=== PATIENT | male | born 1965 | race Caucasian/White ===

== ENCOUNTER 2021-01-24 02:43 | Emergency (ER) | payer MEDICAID, SELFPAY ==
--- NOTE | 2021-01-24 02:44 | PC.NURSE ---
patient was fully undressed and taken to decon
[2021-01-24 03:00] VITALS: BP 147/90; PULSE 75; RESP 14; TEMP 36.6; O2SAT 95; BMI 30.7
[2021-01-24 03:14] VITALS: BP 161/74; PULSE 86; O2SAT 95
--- NOTE | 2021-01-24 03:18 | ED.OVERDOSE ---
HPI - Overdose General Chief Complaint: Overdose Stated Complaint: Overdose Time Seen by Provider: 01/24/21 02:52 Source: patient Mode of arrival: EMS History of Present Illness HPI Narrative: 55-year-old male prior heroin user who recently relapsed and began using heroin approximately 1 week ago. He states that he used a bundle last night and arise via EMS from home where his brother found him on the ground not breathing. Please department administered 4 mg nasal Narcan, EMS arrived and started to bag the patient and administered another 2 mg of Narcan nasally. After the latter Narcan patient immediately awoke and was found to be fully alert and oriented x4. Patient states that this was not an attempt to take his life and denies any suicidal ideation. Related Data Allergies Allergy/AdvReac Type Severity Reaction Status Date / Time No Known Allergies Allergy Unverified 06/03/20 15:43 [No Known Allergies*] Review of Systems Review of Systems: Pertinent positives and negatives as stated in HPI 10 point review systems is otherwise negative. [facility] Past Medical History Source: nursing notes reviewed Medical History No known health problems Social History Social History Alcohol intake: never Smoking Status: Never smoker Use of substances other than those prescribed or required for medical reasons: Yes Substance Use Frequency: Daily Last Used Substance: Hours (ago) Advance Directives: No Advance Directives Information Provided: No Physical Exam Vital Signs: Vital Signs: Last Vital Signs Temp 97.8 F 01/24/21 03:00 Pulse 79 01/24/21 04:25 Resp 15 01/24/21 04:25 BP 125/85 01/24/21 04:25 Pulse Ox 97 01/24/21 04:25 Body Mass Index 30.7 VITAL SIGNS: Reviewed. GENERAL: Well developed, well nourished, in no acute distress. HEAD: Normocephalic/atraumatic EYES: PERRLA, EOMI OROPHARYNX: no oral lesions noted, posterior pharynx clear NECK: Supple, no adenopathy LUNGS: Normal breath sounds. No adventitious sounds or accessory muscle use. SpO2<93> CARDIOVASCULAR: Regular rate and rhythm without noted murmurs ABDOMEN: Soft, non-tender, non-distended with bowel sounds. NEUROLOGIC: Drowsy and oriented x 4. Strength and sensation to light touch were grossly intact x 4. Course Course Course Narrative: 55-year-old male with history and clinical presentation consistent with relapse to heroin and overdosed this evening. No evidence to suggest suicide attempt and patient will be observed and discharged when more awake. On re-evaluation patient has a steady gait, he is able to tolerate p.o. and stable for discharge to home. Reevaluation(s) Reevaluation #1: Patient placed in physician observation because the patient needed more time sober. At the time observation was started the patient's vital signs were stable, patient is drowsy and oriented but slightly agitated, neuro: Nonfocal, CV RRR, lungs clear Time: 03:45 Reevaluation #2: Patient remove from physician observation because the patient is clinically sober. On re-evaluation vital signs are stable, patient is alert and tolerating p.o., CV RRR, lungs clear, abdomen nontender, neuro: Nonfocal. Time: 06:50 Discharge Plan Discharge Clinical Impression: Drug overdose Patient Disposition: Home, Self-Care Instructions: Adult Overdose (ED) Additional Instructions: Return to the emergency department should you develop acute worsening of symptoms. Referrals: Physician,Unknown [Primary Care Provider] - 2 days Print Language: Korean
[2021-01-24 03:21] VITALS: BP 136/88; PULSE 77; RESP 14; O2SAT 93
[2021-01-24 04:25] VITALS: BP 125/85; PULSE 79; RESP 15; O2SAT 97
== END 2021-01-24 06:54 | disposition home or self-care (01) ==
LOC: HO.ED 04:07
PROVIDERS: Emergency Provider Student in an Organized Health Care Education/Training Program
DX: T40.1X1A Poisoning by heroin, accidental (unintentional), initial encounter (principal); R06.81 Apnea, not elsewhere classified; Y92.039 Unspecified place in apartment as the place of occurrence of the external cause
CPT/HCPCS: 99284

== ENCOUNTER 2021-01-26 23:15 | Emergency (ER) | payer MEDICAID, SELFPAY ==
--- NOTE | ~2021-01-26 | CT_ITS ---
EXAMINATION: CT HEAD WITHOUT CONTRAST CLINICAL INFORMATION: Found down COMPARISON: None. TECHNIQUE: Contiguous axial imaging was performed from the skull base to vertex without intravenous contrast. This CT examination was performed using dose optimization techniques as appropriate, variously including the following: * Automated exposure control * Adjustment of mA and/or kV according to patient size (this includes techniques or standardized protocols for targeted exams where dose is matched to indication/reason for exam; i.e. extremities or head) Use of iterative reconstruction technique DLP: 723 mGy-cm. FINDINGS: There is no evidence of acute intracranial hemorrhage or territorial infarction. No abnormal mass effect or midline shift is seen. Lopez to white matter differentiation is well preserved. No extra-axial fluid collections are identified. No hydrocephalus. No significant volume loss. There is no abnormal attenuation within the brain parenchyma. The osseous structures and soft tissues are normal. Moderate opacification of the ethmoid air cells. The mastoid air cells and visualized portions of the paranasal sinuses are otherwise well aerated. CT/CT head/brain wo con IMPRESSION: No acute intracranial pathology.
[2021-01-26 23:21] VITALS: BP 152/100; PULSE 82; RESP 16; TEMP 36.6; O2SAT 96; BMI 30.7
[2021-01-26 23:32] VITALS: BP 152/106; PULSE 86; RESP 18; TEMP 36.6; O2SAT 96
--- NOTE | 2021-01-26 23:37 | ED_ITS ---
HPI - Overdose General Chief Complaint: Overdose <MONET Aguilar Last Filed: 01/27/21 01:49> Stated Complaint: ? <MONET Aguilar Last Filed: 01/27/21 01:49> Time Seen by Provider: 01/26/21 23:37 <MONET Aguilar Last Filed: 01/27/21 01:49> Source: patient and EMS <MONET Aguilar Last Filed: 01/27/21 01:49> Mode of arrival: EMS <MONET Aguilar Last Filed: 01/27/21 01:49> Limitations: no limitations <MONET Aguilar Last Filed: 01/27/21 01:49> History of Present Illness HPI Narrative: 55 y/o male presenting to the ER via EMS after he was found unconscious in the hallway of an apartment building. He was given 12 mg IN narcan by bystanders and regained consciousness. He admits to injecting 1 bag of heroin today. He arrives AAO x3 and denies complaints. He does not know how he got into the apartment building or if he fell down or what happened. He states he lives near there. He has overdosed in the past. He denies trying to injure himself. He denies injuries. No headache, vomiting, aches or pains. He was seen here 2 days ago for similar event. Note states he just relapsed 1 week ago and started using again. <MONET Aguilar Last Filed: 01/27/21 01:49> MD complaint: accidental overdose <MONET Aguilar Last Filed: 01/27/21 01:49> Onset (ago): unknown <MONET Aguilar Last Filed: 01/27/21 01:49> Intent: unwilling to say <MONET Aguilar Last Filed: 01/27/21 01:49> Context: Accidental Overdose: wanted to get high and uncertain what happened <MONET Aguilar Last Filed: 01/27/21 01:49> Treatments Prior to Arrival: narcan <MONET Aguilar Last Filed: 01/27/21 01:49> Related Data Allergies/Adverse Reactions: Allergies Allergy/AdvReac Type Severity Reaction Status Date / Time No Known Allergies Allergy Unverified 06/03/20 15:43 [No Known Allergies*] <MONET Aguilar - Last Filed: 01/27/21 01:49> Review of Systems Review of Systems: Constitutional: No Fever, No Chills Cardiovascular: No Chest Pain, No SOB, No Orthopnea, No Edema Respiratory: No Cough, No Sputum, No Wheezing, No dyspnea Gastrointestinal: No Nausea, No Vomiting, No Diarrhea, No abdominal Pain Musculoskeletal: No joint pain, No Myalgias Skin: + Skin Lesions, No rash Neuro: No Weakness, No Numbness, No Dizziness, No Headache Psych: No Anxiety/Panic, + Depression, No SI Heme/Lymph: + Bruising, No Lymphadenopathy <MONET Aguilar Last Filed: 01/27/21 01:49> PENDING SALE TO [facility] Past Medical History Attestation statement: The following information was validated with the patient. <MONET Aguilar Last Filed: 01/27/21 01:49> Medical History: Medical History No known health problems <MONET Aguilar Last Filed: 01/27/21 01:49> Social History Social History: Social History Alcohol intake: never Smoking Status: Current every day smoker Use of substances other than those prescribed or required for medical reasons: Yes Substance Use Type: Heroin Advance Directives: No Advance Directives Information Provided: No <MONET Aguilar Last Filed: 01/27/21 01:49> Physical Exam Vital Signs: Vital Signs: Last Vital Signs Temp 97.9 F 01/26/21 23:32 Pulse 66 01/27/21 06:16 Resp 16 01/27/21 06:16 BP 146/97 H 01/27/21 06:16 Pulse Ox 94 01/27/21 06:16 Body Mass Index 30.7 Appearance: Lethargic but arouses to voice. Oriented X3. No acute distress. Eyes: Pupils equal, round and reactive to light. ENT: Pharynx normal. Neck: Normal inspection. Neck supple. CVS: Normal heart rate and rhythm. Pulses normal. Respiratory: No respiratory distress. Breath sounds normal. Abdomen: Soft and nontender. +BS x4 Skin: Skin warm and dry. Normal skin color. Normal skin turgor. No rashes. Extremities: No lower extremity edema. Left upper extremity with track landrum on medial portion of upper arm, no cellultiis or abscess Neuro: Oriented X 3. No motor deficit. No sensory deficit. Answers questions appropriately. <MONET Aguilar - Last Filed: 01/27/21 01:49> Vital Signs: Last Vital Signs Temp 97.9 F 01/26/21 23:32 Pulse 66 01/27/21 06:16 Resp 16 01/27/21 06:16 BP 146/97 H 01/27/21 06:16 Pulse Ox 94 01/27/21 06:16 Body Mass Index 30.7 <Halima Castañeda DO - Last Filed: 01/27/21 06:56> Course Course Course Narrative: 55 y/o male presenting with unintentional heroin overdose. Found down, unknown down time. No signs of trauma. He is awake and appropriate on arrival after 12 mg IN Narcan. Will get basic labs and CT head given downtime and mechanism is unknown. <MONET Aguilar - Last Filed: 01/27/21 01:49> Reevaluation(s) Reevaluation #1: Labs show potassium 3.0. CPK mildly elevated 240. Normal renal function. CT head is negative. Would benefit from d/w Curriculum And Instruction Director given this is his 2nd significant overdose in the last 3 days. He needs detox. He states he is on Vivitrol, last got his shot 1 month ago. Does not know the day he is due. He is agreeable to stay and speak with monomer recovery operator in the morning about other options. Physician observation started at 1:45am. Patient placed in physician observation because patient is awaiting discussion with Curriculum And Instruction Director for additional opiate addiction treatment options.. At the time observation was started patient's vital signs were stable. Patient is alert and oriented. Neuro exam is non-focal. Steady on his feet. CV: RRR and lungs are clear. Will continue to monitor. <MONET Aguilar - Last Filed: 01/27/21 01:49> MDM - Overdose Lab Data Result diagrams: : 01/27/21 00:16 01/27/21 00:16 <MONET Aguilar - Last Filed: 01/27/21 01:49> Labs: Lab Results 01/27/21 01/27/21 01/27/21 Range/Units 00:16 00:16 00:16 WBC 7.9 (4.8-10.8) X10*3/uL RBC 3.79 L (4.60-5.80) X10*6/uL Hgb 12.3 L (14.0-18.0) g/dl Hct 35.4 L (42-52) % MCV 93.4 (80-98) fL MCH 32.5 (27.0-33.0) pg MCHC 34.7 (31.0-36.0) g/dl RDW 11.9 (11.0-16.0) % Plt Count 190 (160-400) X10*3/uL MPV 9.9 (9.4-12.4) fL Immature Gran % (Auto) 0.3 (0.0-0.4) % Neut % (Auto) 73.2 H (45-73) % Lymph % (Auto) 13.5 L (20-40) % [place] % (Auto) 9.1 (2-11) % Eos % (Auto) 3.4 (0-4) % Baso % (Auto) 0.5 (0-2) % Lymph # (Auto) 1.1 L (1.2-4.9) X10*3/uL [place] # (Auto) 0.7 (0.1-1.2) X10*3/uL Eos # (Auto) 0.3 (0.0-0.4) X10*3/uL Baso # (Auto) 0.0 (0.0-0.2) X10*3/uL Abs Immat Gran (auto) 0.02 (0.00-0.03) X10*3/uL Absolute Neuts (auto) 5.8 (2.0-8.3) X10*3/uL Absolute Nucleated RBC 0.000 (0.0-0.012) X10*3/uL Nucleated RBC % (auto) 0.0 (0.0-0.2) /100WBC Sodium 141 (135-145) mmol/L Potassium 3.0 L (3.3-5.1) mmol/L Chloride 104 (96-108) mmol/L Carbon Dioxide 29 (22-29) mmol/L Anion Gap 11 L (12-20) BUN 15 (9-16) mg/dL Creatinine 1.04 (0.5-1.4) mg/dL Estim Creat Clear Calc 97.8 Estimated GFR > 60 Random Glucose 138 H (60-115) mg/dL Calcium 8.8 (8.4-10.2) mg/dL Magnesium 2.3 (1.6-2.6) mg/dL Total Bilirubin 0.5 (0.0-1.0) mg/dL Direct Bilirubin 0.3 (0.0-0.5) mg/dL AST 25 (5-37) U/L ALT 25 (0-40) U/L Alkaline Phosphatase 53 (39-117) U/L Total Creatine Kinase 245 H (38-174) U/L Total Protein 6.7 (6.5-8.0) g/dL Albumin 3.9 (3.5-5.0) g/dL Ethyl Alcohol < 10 mg/dL <MONET Aguilar - Last Filed: 01/27/21 01:49> Lab Results 01/27/21 01/27/21 01/27/21 Range/Units 00:16 00:16 00:16 WBC 7.9 (4.8-10.8) X10*3/uL RBC 3.79 L (4.60-5.80) X10*6/uL Hgb 12.3 L (14.0-18.0) g/dl Hct 35.4 L (42-52) % MCV 93.4 (80-98) fL MCH 32.5 (27.0-33.0) pg MCHC 34.7 (31.0-36.0) g/dl RDW 11.9 (11.0-16.0) % Plt Count 190 (160-400) X10*3/uL MPV 9.9 (9.4-12.4) fL Immature Gran % (Auto) 0.3 (0.0-0.4) % Neut % (Auto) 73.2 H (45-73) % Lymph % (Auto) 13.5 L (20-40) % [place] % (Auto) 9.1 (2-11) % Eos % (Auto) 3.4 (0-4) % Baso % (Auto) 0.5 (0-2) % Lymph # (Auto) 1.1 L (1.2-4.9) X10*3/uL [place] # (Auto) 0.7 (0.1-1.2) X10*3/uL Eos # (Auto) 0.3 (0.0-0.4) X10*3/uL Baso # (Auto) 0.0 (0.0-0.2) X10*3/uL Abs Immat Gran (auto) 0.02 (0.00-0.03) X10*3/uL Absolute Neuts (auto) 5.8 (2.0-8.3) X10*3/uL Absolute Nucleated RBC 0.000 (0.0-0.012) X10*3/uL Nucleated RBC % (auto) 0.0 (0.0-0.2) /100WBC Sodium 141 (135-145) mmol/L Potassium 3.0 L (3.3-5.1) mmol/L Chloride 104 (96-108) mmol/L Carbon Dioxide 29 (22-29) mmol/L Anion Gap 11 L (12-20) BUN 15 (9-16) mg/dL Creatinine 1.04 (0.5-1.4) mg/dL Estim Creat Clear Calc 97.8 Estimated GFR > 60 Random Glucose 138 H (60-115) mg/dL Calcium 8.8 (8.4-10.2) mg/dL Magnesium 2.3 (1.6-2.6) mg/dL Total Bilirubin 0.5 (0.0-1.0) mg/dL Direct Bilirubin 0.3 (0.0-0.5) mg/dL AST 25 (5-37) U/L ALT 25 (0-40) U/L Alkaline Phosphatase 53 (39-117) U/L Total Creatine Kinase 245 H (38-174) U/L Total Protein 6.7 (6.5-8.0) g/dL Albumin 3.9 (3.5-5.0) g/dL Ethyl Alcohol < 10 mg/dL <Halima Castañeda DO - Last Filed: 01/27/21 06:56> Discharge Plan Discharge Clinical Impression: Hypokalemia Drug overdose Qualifiers: Encounter type: initial encounter Injury intent: accidental or unintentional Qualified Code(s): T50.901A - Poisoning by unspecified drugs, medicaments and biological substances, accidental (unintentional), initial encounter <MONET Aguilar - Last Filed: 01/27/21 01:49> Instructions: Opioid Use Disorder (ED) <MONET Aguilar - Last Filed: 01/27/21 01:49> Additional Instructions: DO NOT USE HEROIN - YOU ALMOST TODAY THIS IS YOUR 2ND OVERDOSE IN 3 DAYS Recommend detox. <MONET Aguilar - Last Filed: 01/27/21 01:49>
[2021-01-27 00:21] LABS: MANUAL DIFF FLAG NO
[2021-01-27 00:22] LABS: Basophils Percent Auto 0.5 % (0-2); Eosinophils Absolute Auto 0.3 X10*3/uL (0.0-0.4); Eosinophils Percent Auto 3.4 % (0-4); Hematocrit 35.4 % (42-52); Hemoglobin 12.3 g/dl (14.0-18.0); Imm Gran Abs Auto 0.02 X10*3/uL (0.00-0.03); Imm Gran Pct Auto 0.3 % (0.0-0.4); Lymphocytes Absolute Auto 1.1 X10*3/uL (1.2-4.9); Lymphocytes Percent Auto 13.5 % (20-40); Mean Corpuscular HGB Conc 34.7 g/dl (31.0-36.0); Mean Corpuscular Hemoglobin 32.5 pg (27.0-33.0); Mean Corpuscular Volume 93.4 fL (80-98); Mean Platelet Volume 9.9 fL (9.4-12.4); Monocytes Absolute Auto 0.7 X10*3/uL (0.1-1.2); Monocytes Percent Auto 9.1 % (2-11); Neutrophils Absolute Auto 5.8 X10*3/uL (2.0-8.3); Neutrophils Percent Auto 73.2 % (45-73); Platelet Count 190 X10*3/uL (160-400); Red Blood Count 3.79 X10*6/uL (4.60-5.80); Red Cell Distribution Width 11.9 % (11.0-16.0); White Blood Count 7.9 X10*3/uL (4.8-10.8)
[2021-01-27 00:51] LABS: Ethanol < 10 mg/dL
[2021-01-27 00:55] LABS: Alanine Aminotransferase 25 U/L (0-40); Albumin Level 3.9 g/dL (3.5-5.0); Alkaline Phosphatase 53 U/L (39-117); Anion Gap 11 (12-20); Aspartate Amino Transferase 25 U/L (5-37); Bilirubin Direct 0.3 mg/dL (0.0-0.5); Bilirubin Total 0.5 mg/dL (0.0-1.0); Blood Urea Nitrogen 15 mg/dL (9-16); Calcium 8.8 mg/dL (8.4-10.2); Carbon Dioxide 29 mmol/L (22-29); Chloride 104 mmol/L (96-108); Creatinine Clr Calc Pharmacy 97.8; Estimated Glomerular Filt Rate > 60; Glucose Random 138 mg/dL (60-115); Magnesium 2.3 mg/dL (1.6-2.6); Sodium 141 mmol/L (135-145); Total Protein 6.7 g/dL (6.5-8.0)
[2021-01-27] MEDS: Potassium Chloride ER 20 MEQ TAB.ER.PRT 40 MEQ PO (01:24)
[2021-01-27 01:26] VITALS: PULSE 68; RESP 14; O2SAT 97
--- NOTE | 2021-01-27 02:01 | PC.NURSE ---
plan is to let patient sleep until the morning, he is requesting to speak to a aircraft launch and recovery technician. pt offered food and beverage, he declined. pt did drink 8oz of water with tablets.
[2021-01-27 04:19] VITALS: PULSE 68; RESP 16; O2SAT 95
[2021-01-27 06:16] VITALS: BP 146/97; PULSE 66; RESP 16; O2SAT 94
[2021-01-27 08:45] VITALS: BP 131/95; PULSE 64; RESP 20; O2SAT 96
--- NOTE | 2021-01-27 08:53 | PC.NURSE ---
Pt alert, oriented, denies SI, requested to speak with [facility], awaiting consult.
--- NOTE | 2021-01-27 10:09 | MHC.RECOVSUP ---
? Reason for consult:Continuity of care o Current location: Bed 21 o Identified substance use concern: Heroin - Overdose - Withdrawal - Support ? Intervention: o MAT started or to be started o Community resources provided o ? Plan: o Patient to follow up with [facility] after discharge ? Additional information: Patient refuses treatment. States I'm on Vivitrol and asked to be discharged. Patient given community resources.
== END 2021-01-27 10:31 | disposition home or self-care (01) ==
PROVIDERS: Physician Assistant; Emergency Provider Emergency Medicine
DX: T40.1X1A Poisoning by heroin, accidental (unintentional), initial encounter (principal); R40.20 Unspecified coma; Y92.038 Other place in apartment as the place of occurrence of the external cause; F17.200 Nicotine dependence, unspecified, uncomplicated; E87.6 Hypokalemia
CPT/HCPCS: 36415; 70450; 80048; 80076; 80320; 82550; 83735; 85025; 99285

== ENCOUNTER 2025-03-12 11:06 | Emergency (ER) | payer MEDICAID, SELFPAY ==
--- NOTE | ~2025-03-12 | XR_ITS ---
EXAMINATION: XR CHEST CLINICAL INFORMATION: left sided chest pain. recent incarceration COMPARISON: None available. TECHNIQUE: 2 views of the chest were obtained. FINDINGS: The cardiac, hilar, and mediastinal contours are normal. The lungs are clear bilaterally. There is no pneumothorax or pleural effusion. There is no focal osseous or soft tissue abnormality. XR/XR chest 2V IMPRESSION: No active pulmonary disease. Electronically signed by: Thomas Nguyen MD 03/12/2025 12:49 PM EDT
--- NOTE | 2025-03-12 11:12 | ECG_ITS ---
Test Reason : cp Blood Pressure : */* mmHG Vent. Rate : 82 BPM Atrial Rate : 82 BPM P-R Int : 146 ms QRS Dur : 88 ms QT Int : 388 ms P-R-T Axes : 32 25 18 degrees QTcB Int : 453 ms Normal sinus rhythm Nonspecific ST abnormality Abnormal ECG No previous ECGs available Referred By: Generic ED Physician Electronically Signed By: DAWSON LAWRENCE
[2025-03-12 11:16] VITALS: BP 134/92; BP 162/110; PULSE 75; PULSE 83; RESP 16; O2SAT 93; O2SAT 95; BMI 36.3
[2025-03-12 11:26] VITALS: PULSE 77
[2025-03-12 11:47] VITALS: BP 136/89; PULSE 68
[2025-03-12] MEDS: Nitroglycerin 2 % Oint 1 GM Packet 1 INCH TRANSDERMA (11:47)
--- NOTE | 2025-03-12 12:05 | ED.CHESTPAIN ---
HPI - Chest Pain General Chief Complaint: Chest Pain Stated Complaint: CP, HTN, MADDEN Time Seen by Provider: 03/12/25 11:33 Source: patient, RN notes reviewed and old records reviewed Mode of arrival: EMS Limitations: no limitations History of Present Illness ED Provider: Shawn CAMPBELL narrative: 60-year-old male with past medical history significant for hypertension presents for evaluation of left-sided chest pain. His pain started about 30 minutes prior to arrival to the ED. His pain is in the left chest, does not radiate His pain is worse with inspiration. He denies any personal history of previous MIs He reports that he was incarcerated for several years and was released 2 weeks ago He reports some mild shortness of breath, denies any cough, fevers, chills. Denies any abdominal pain mckenzie IV, verbally The patient is a current tobacco smoker Related Data Home Medications ?Medication ?Instructions ?Recorded ?Confirmed aspirin 81 mg tablet,delayed 81 mg PO DAILY 03/12/25 03/12/25 release buprenorphine 8 mg-naloxone 2 mg 1 film buccal DAILY 03/12/25 03/12/25 sublingual film (Suboxone) diclofenac sodium 1 % topical gel 2 g topical TID 03/12/25 03/12/25 ergocalciferol (vitamin D2) 1,250 1,250 mcg PO QWEEK 03/12/25 03/12/25 mcg (50,000 unit) capsule (Vitamin D2) hydrocortisone 1 % topical cream 1 appl topical BID 03/12/25 03/12/25 ibuprofen 800 mg tablet 800 mg PO TIDWM 03/12/25 03/12/25 ketoconazole 2 % topical cream 1 appl topical BID 03/12/25 03/12/25 lidocaine 5 % topical patch 1 patch topical DAILY 03/12/25 03/12/25 lisinopril 20 1 tab PO DAILY 03/12/25 03/12/25 mg-hydrochlorothiazide 25 mg tablet naloxone 4 mg/actuation nasal 1 spray intranasal Q2M PRN OVERDOSE 03/12/25 03/12/25 spray (Narcan) nicotine (polacrilex) 4 mg gum 4 mg buccal Q2H PRN CRAVINGS 03/12/25 03/12/25 (Nicorette) prazosin 2 mg capsule 4 mg PO BEDTIME 03/12/25 03/12/25 selenium sulfide 2.25 % shampoo 10 ml topical 3XW 03/12/25 03/12/25 sertraline 100 mg tablet 100 mg PO DAILY 03/12/25 03/12/25 trazodone 100 mg tablet 200 mg PO BEDTIME 03/12/25 03/12/25 Previous Rx's ?Medication ?Instructions ?Recorded albuterol sulfate 90 mcg/actuation 2 inh inhalation Q4-6H PRN 03/12/25 breath activated powder inhaler shortness of breath or wheezing #1 ea Allergies Allergy/AdvReac Type Severity Reaction Status Date / Time No Known Allergies (No Known Allergy Unverified 03/12/25 11:20 Allergies*) Review of Systems Constitutional: Constitutional: Denies body ache(s), Denies chills, Denies fever(s), Denies frequent falls and Denies headache(s) Eyes: Eyes: Denies blurry vision ENT: Denies vertigo, Denies dizziness and Denies headache(s) Cardiovascular: Cardiovascular: Reports chest pain, Denies chest pain at rest and Reports dyspnea Respiratory: Respiratory: Denies cough and Reports dyspnea Gastrointestinal: Gastrointestinal: Denies abdominal pain, Denies nausea and Denies vomiting Musculoskeletal: Musculoskeletal: Denies back pain Integumentary/Breasts: Skin/Breast: Denies rash Neurologic: Denies vertigo, Denies dizziness, Denies frequent falls and Denies headache(s) [facility] Past Medical History Medical History No known health problems Social History Social History Alcohol intake: current Alcohol intake frequency: does not drink Smoked in Last 30 Days: Yes Substance Use Type: Heroin Advance Directives: No Advance Directives Information Provided: Yes Do you have a plan to hurt others: No Plan Physical Exam Vital Signs: Vital Signs: Last Vital Signs Temp 98.0 F 03/12/25 14:35 Pulse 64 03/12/25 14:35 Resp 18 03/12/25 14:35 BP 134/80 03/12/25 14:35 Pulse Ox 96 03/12/25 14:35 O2 Del Method Room Air 03/12/25 14:35 BMI result Body Mass Index 36.3 Const: General: healthy appearing, comfortable, no acute distress, alert and awake Nutritional Appearance: well nourished Orientation/consciousness: patient oriented x3 HEENT: Head: Yes normocephalic and Yes atraumatic Eyes: Eyelids: Yes eyelids normal Conjunctivae: conjunctivae normal Sclerae: sclerae normal Corneas: corneas normal Pupils: Equal, round and reactive pupils present EOM: EOMs intact bilaterally Neck: Neck: Yes full ROM Chest: Other: No left chest tenderness. No palpable deformities Chest palpation & inspection: no crepitus Resp: Other: Low patient wheeze throughout the lung karimi Effort & Inspection: normal respiratory effort, able to speak in complete sentences and not labored Cardio: Rate: regular rate Rhythm: regular rhythm GI: Inspection: No distended Palpation (GI): Soft to palpation, not firm, nontender, no guarding and not rigid Skin: General skin exam: elasticity normal Neuro: General: patient oriented x3 Cranial nerves: Yes Equal, round and reactive pupils present and Yes Bilaterally intact EOM present Cognition (Neuro): normal cognition Medications Administered Discontinued Medications Generic Name Dose Route Start Last Admin Trade Name Freq PRN Reason Stop Dose Admin Nitroglycerin 1 inch 03/12/25 11:38 03/12/25 11:47 Nitroglycerin 2 % Oint 1 Gm Packet TRANSDERMA 03/12/25 11:39 1 inch ONCE ONE Administration Medical Decision Making Medical Decision Making [facility] Narrative: 60-year-old male with past medical history as above presents for evaluation of left-sided chest pain and some mild shortness of breath. His EKG shows normal sinus rhythm. There was no ST segment elevation AR. there is flattening of the T-waves in the lateral leads. No previous EKG for comparison. Plan for troponin. We will get a chest x-ray given the wheeze. Denies any history of asthma or COPD. His vital signs are currently stable and he is quite well appearing. Symptoms could also be related to anxiety, GERD chest wall strain. PEs seemed to be less likely as the patient is not tachycardic hypoxic Differential Diagnosis Differential Diagnoses: The differential diagnosis associated with the presentation includes As above Admission/Observation Consideration of admission/observation: Escalation of care including admission/observation considered Lab Data [facility] Lab Attestation statement: I reviewed the patient's lab results. No leukocytosis. The patient has a mild normocytic anemia consistent with his labs from 2020, normal platelet count. No significant electrolyte abnormalities warranting intervention. Troponin is within normal limits but detectable at 10.7. Plan to repeat a troponin at the 2 hour eladio given the chief complaint of chest pain. 03/12/25 12:05 03/12/25 12:05 Labs: Lab Results 03/12/25 03/12/25 Range/Units 12:05 14:28 WBC 8.3 (4.8-10.8) X10*3/uL RBC 4.03 L (4.60-5.80) X10*6/uL Hgb 12.7 L (14.0-18.0) g/dl Hct 36.3 L (42.0-52.0) % MCV 90.1 (80.0-98.0) fL MCH 31.5 (27.0-33.0) pg MCHC 35.0 (31.0-36.0) g/dl RDW 12.9 (11.0-16.0) % Plt Count 190 (160-400) X10*3/uL MPV 10.2 (9.4-12.4) fL Immature Gran % (Auto) 0.4 (0.0-0.4) % Neut % (Auto) 52.4 (45-73) % Lymph % (Auto) 34.9 (20-40) % [place] % (Auto) 8.1 (2-11) % Eos % (Auto) 3.6 (0-4) % Baso % (Auto) 0.6 (0-2) % Lymph # (Auto) 2.9 (1.2-4.9) X10*3/uL [place] # (Auto) 0.7 (0.1-1.2) X10*3/uL Eos # (Auto) 0.3 (0.0-0.4) X10*3/uL Baso # (Auto) 0.1 (0.0-0.2) X10*3/uL Abs Immat Gran (auto) 0.03 (0.00-0.03) X10*3/uL Absolute Neuts (auto) 4.4 (2.0-8.3) x10*3/uL Absolute Nucleated RBC 0.000 (0.0-0.012) X10*3/uL Nucleated RBC % (auto) 0.0 (0.0-0.2) /100WBC Sodium 143 (135-145) mmol/L Potassium 3.4 (3.3-5.1) mmol/L Chloride 109 H (96-108) mmol/L Carbon Dioxide 25 (22-29) mmol/L Anion Gap 12 (12-20) BUN 17 H (9-16) mg/dL Creatinine 0.95 (0.5-1.4) mg/dL Estim Creat Clear Calc 109.3 Estimated GFR > 60 Random Glucose 122 H (60-115) mg/dL Calcium 9.1 (8.4-10.2) mg/dL Troponin I High Sens 10.7 10.9 (<3.5-35.0) ng/L Independent Interpretation I performed an independent interpretation of an: EKG (Normal sinus rhythm with a rate of [address] segment elevation. Nondiagnostic EKG) Discharge Plan Discharge Clinical Impression: Atypical chest pain Patient Disposition: Home, Self-Care Instructions: Chest Pain (ED) Additional Instructions: Your workup in the ER today was reassuring. This includes your blood work, EKG and chest x-ray. You may use ibuprofen/Tylenol for pain. I sent a prescription for an albuterol inhaler to your pharmacy. You may use this for shortness of breath or wheezing Follow-up with your primary doctor, return for new or worsening symptoms Prescriptions: New albuterol sulfate 90 mcg/actuation aerosol powdr breath activated 2 inh inhalation Q4-6H PRN (Reason: shortness of breath or wheezing) Qty: 1 0RF No Action ibuprofen 800 mg Tablet 800 mg PO TIDWM sertraline 100 mg Tablet 100 mg PO DAILY aspirin [Aspir-81] 81 mg Tablet,Delayed Release (Dr/Ec) 81 mg PO DAILY trazodone 100 mg Tablet 200 mg PO BEDTIME nicotine (polacrilex) [Nicorette] 4 mg Gum 4 mg BUCCAL Q2H PRN (Reason: CRAVINGS) hydrocortisone 1 % Cream 1 appl TOPICAL BID lidocaine 5 % Adhesive Patch,Medicated 1 patch TOPICAL DAILY Rx Instructions: leave on most painful area for up to 12 hrs lisinopril-hydrochlorothiazide 20-25 mg Tablet 1 tab PO DAILY ergocalciferol (vitamin D2) [Vitamin D2] 1,250 mcg (50,000 unit) Capsule 1,250 mcg PO QWEEK ketoconazole 2 % Cream 1 appl TOPICAL BID prazosin 2 mg Capsule 4 mg PO BEDTIME selenium sulfide 2.25 % Shampoo 10 ml TOPICAL 3XW Rx Instructions: lather into wet hair; leave in place for approximately 3 mins ; rinse diclofenac sodium 1 % Gel 2 g TOPICAL TID Rx Instructions: apply to single elbow, wrist or hand; for hand includes palm/fingers/back of hand buprenorphine-naloxone [Suboxone] 8-2 mg Film 1 film BUCCAL DAILY naloxone [Narcan] 4 mg/actuation [place],Non-Aerosol 1 spray INTRANASAL Q2M PRN (Reason: OVERDOSE) Rx Instructions: spray 1 dose into ONE nostril; alternate nostrils w each dose until help arrives Print Language: Kosovan
[2025-03-12 12:09] LABS: MANUAL DIFF FLAG NO
[2025-03-12 12:12] LABS: Basophils Absolute Auto 0.1 X10*3/uL (0.0-0.2); Basophils Percent Auto 0.6 % (0-2); Eosinophils Absolute Auto 0.3 X10*3/uL (0.0-0.4); Eosinophils Percent Auto 3.6 % (0-4); Hematocrit 36.3 % (42.0-52.0); Hemoglobin 12.7 g/dl (14.0-18.0); Imm Gran Abs Auto 0.03 X10*3/uL (0.00-0.03); Imm Gran Pct Auto 0.4 % (0.0-0.4); Lymphocytes Absolute Auto 2.9 X10*3/uL (1.2-4.9); Lymphocytes Percent Auto 34.9 % (20-40); Mean Corpuscular Hemoglobin 31.5 pg (27.0-33.0); Mean Corpuscular Volume 90.1 fL (80.0-98.0); Mean Platelet Volume 10.2 fL (9.4-12.4); Monocytes Absolute Auto 0.7 X10*3/uL (0.1-1.2); Monocytes Percent Auto 8.1 % (2-11); Neutrophils Absolute Auto 4.4 x10*3/uL (2.0-8.3); Neutrophils Percent Auto 52.4 % (45-73); Platelet Count 190 X10*3/uL (160-400); Red Blood Count 4.03 X10*6/uL (4.60-5.80); Red Cell Distribution Width 12.9 % (11.0-16.0); White Blood Count 8.3 X10*3/uL (4.8-10.8)
[2025-03-12 12:24] LABS: Anion Gap 12 (12-20); Blood Urea Nitrogen 17 mg/dL (9-16); Calcium 9.1 mg/dL (8.4-10.2); Carbon Dioxide 25 mmol/L (22-29); Chloride 109 mmol/L (96-108); Creatinine Clr Calc Pharmacy 109.3; Estimated Glomerular Filt Rate > 60; Glucose Random 122 mg/dL (60-115); Potassium 3.4 mmol/L (3.3-5.1); Sodium 143 mmol/L (135-145)
[2025-03-12 12:32] LABS: Troponin-I High Sensitivity 10.7 ng/L (<3.5-35.0)
[2025-03-12 14:35] VITALS: BP 134/80; PULSE 64; RESP 18; TEMP 36.7; O2SAT 96
--- NOTE | 2025-03-12 14:47 | PHA.MEDREC ---
Pharmacy Consult ? Medication Reconciliation Pharmacy has completed the medication reconciliation. Utilized list.
--- NOTE | 2025-03-12 14:50 | PHA.MEDREC ---
Pharmacy Consult ? Medication Reconciliation Pharmacy has completed the medication reconciliation. Utilized List.
[2025-03-12 14:58] LABS: Troponin-I High Sensitivity 10.9 ng/L (<3.5-35.0)
[2025-03-12 15:18] VITALS: BP 134/80; PULSE 64; RESP 18; TEMP 36.7; O2SAT 96
== END 2025-03-12 15:29 | disposition home or self-care (01) ==
PROVIDERS: Physician Assistant; Emergency Provider Emergency Medicine
DX: R07.89 Other chest pain (principal); R06.02 Shortness of breath; R94.31 Abnormal electrocardiogram [ECG] [EKG]; I10 Essential (primary) hypertension; Z79.899 Other long term (current) drug therapy
CPT/HCPCS: 36415; 71046; 80048; 84484; 85025; 93005; 99285

== ENCOUNTER → 2025-03-12 11:12 | Outpatient (BNV) | payer MEDICAID, SELFPAY | PROVIDERS: Emergency Provider Emergency Medicine; Visit Provider Internal Medicine | DX: R94.31 Abnormal electrocardiogram [ECG] [EKG] (principal); R07.9 Chest pain, unspecified | CPT/HCPCS: 93010 ==

== ENCOUNTER → 2025-03-12 11:51 | Outpatient (BNV) | payer MEDICAID, SELFPAY | PROVIDERS: Emergency Provider Emergency Medicine; Visit Provider Radiology Diagnostic Radiology | DX: R52 Pain, unspecified (principal) | CPT/HCPCS: 71046 ==

== ENCOUNTER 2025-03-24 09:54 | Outpatient (REF) | payer MEDICAID, SELFPAY ==
--- OUTSIDE RECORDS SUMMARY | 2025-03-24 10:34 | XMS_ITS | Clinical Summary ---
Author Organization [facility] Address [address] [place] [address] Care Team Providers Care Forest Botany Instructor Name Role Phone Unavailable Primary Care Provider Unavailabl e Social History Tobacco Use Types Packs/Day Years Used Date Smoking Tobacco: Never Assessed Sex and Gender Information Value Date Recorded Sex Assigned at Not on file Legal Sex Male 11:37 PM EST Gender Identity Not on file Sexual Orientation Not on file Plan of Treatment Health Maintenance Due Date Last Done Comments DTaP,Tdap,and Td Vaccines (1 - Tdap) 1985 Hepatitis B Vaccines (1 of 3 - 19+ 3-dose series) 1985 Pneumococcal Vaccine: 50+ Ye ars (1 of 1 - PCV) 01/31/2016 Zoster Vaccines (1 of 2) 01/31/2016 COVID-19 Vaccine ( - 2023-2 5 season) 2024 Influenza Vaccine (#1) 2025 RSV Immunization Adult Patie nts (1 - 1-dose 75+ series) 2041 HIB Vaccines Aged Out No longer eligi ble based on patient's age to complete this topic HPV Vaccines Aged Out No longer eligi ble based on patient's age to complete this topic Hepatitis A Vaccines Aged Out No long er eligible based on patient's age to complete this topic IPV Vaccines Aged Out No longer eligi ble based on patient's age to complete this topic MMR Vaccines Aged Out No longer eligi ble based on patient's age to complete this topic Meningococcal ACWY Vaccine Aged Out N o longer eligible based on patient's age to complete this topic Meningococcal B Vaccine Aged Out No l onger eligible based on patient's age to complete this topic RSV Immunization Patients Un jayashree 20 months Aged Out No longer eligible b ased on patient's age to complete this topic Varicella Vaccines Aged Out No longer eligible based on patient's age to complete this topic
--- OUTSIDE RECORDS SUMMARY | 2025-03-24 10:34 | XMS_ITS | Encounter Summary ---
Author Organization [employer] Address [address] [facility] [address] [place] [address] Care Team Providers Care Acoustic Intelligence Specialist Name Role Phone Meaghan Jones MD Primary Care Provider + Encounter Details Date Type Department Care Team ([facility] st Contact Info) Description 03/24/2025 Population Health Risk Score [facility] (C3) Department [address] [facility] [address] [place] [id number] Provider, Population Health Generic Social History Tobacco Use Types Packs/Day Years Used Date Smoking Tobacco: Every Day Cigarettes Passive Smoke Exposure: Current Smokeless Tobacco: Never Alcohol Use Standard Drinks/Week Comments Never 0 (1 standard drink = 0.6 oz pur e alcohol) Depression Answer Date Recorded Patient Health Questionnaire-9 Score 18 03/12/2025 Patient Health Questionnaire-9 Score 18 03/12/2025 Last PHQ-9: Questionnaire Data Not on file 0 03/12/2025 Housing Stability Answer Date Recorded What is your housing situation today? I have tomás mitchell 03/12/[address] you li ve. Do you have problems with any of the following? None of the above 03/12/2025 Food Insecurity Answer Date Recorded Within the past 12 months, y ou worried that your food would run out before you got money to buy more: Never True 03/12/2025 Within the past 12 months,th e food you bought just didn't last and you didn't have enough money to get more: Never True Transportation Answer Date Recorded In the past 12 months, has l ack of transportation kept you from medical appts, meetings, work or from getting things needed for daily living? No 03/12/2025 Utilities Answer Date Recorded In the past 12 months, has t he electric, gas, oil or water company threatened to shut off services in your home? No 03/12/2025 Depression Answer Date Recorded Patient Health Questionnaire-2 Score 5 03/12/2025 Internet Access Answer Date Recorded Internet Access Q1 No 03/12/2025 Internet Access Q2 I do not want or need it 02/16 Sex and Gender Information Value Date Recorded Sex Assigned at Male 07/17/2022 10:15 AM EDT Legal Sex Male 10:15 AM EDT Gender Identity Male 07/17/2022 10:15 AM EDT Sexual Orientation Straight 07/17/2022 10 :15 AM EDT documented as of this encounter Plan of Treatment Upcoming Encounters Date Type Department Care Team (Late st Contact Info) Description 04/14/2025 1:30 PM EDT Medication Management [facility] [address] [place] [phone] Michael Haddad, PharmD [address] [place] [phone] 04/16/2025 11:30 AM EDT Office Visit [facility] [address] [place] [phone] Meaghan Jones MD [address] [place] [phone] documented as of this encounter Visit Diagnoses Not on filedocumented in this encounter Additional Health Concerns Assessment Noted Time PHQ-9 Depression Total Score: 18 025 11:06 AM EDT documented as of this encounter Care Teams Acoustic Intelligence Specialist Relationship Specialty Start Date End Date Meaghan Jones MD [address] [place] [phone] PCP - General Family Medicine 05/03/17 documented as of this encounter
[2025-03-24 12:23] LABS: MANUAL DIFF FLAG NO
[2025-03-24 12:27] LABS: Hematocrit 41.5 % (42.0-52.0); Hemoglobin 14.4 g/dl (14.0-18.0); Imm Gran Abs Auto 0.03 X10*3/uL (0.00-0.03); Imm Gran Pct Auto 0.3 % (0.0-0.4); Lymphocytes Absolute Auto 3.2 X10*3/uL (1.2-4.9); Mean Corpuscular HGB Conc 34.7 g/dl (31.0-36.0); Mean Corpuscular Hemoglobin 31.3 pg (27.0-33.0); Mean Corpuscular Volume 90.2 fL (80.0-98.0); NRBC Abs Auto 0.000 X10*3/uL (0.0-0.012); NRBC Pct Auto 0.0 /100WBC (0.0-0.2); Platelet Count 237 X10*3/uL (160-400); Red Blood Count 4.60 X10*6/uL (4.60-5.80); White Blood Count 9.1 X10*3/uL (4.8-10.8)
[2025-03-24 13:00] LABS: HIV Num 1 0.05 S/CO (0.00-0.99)
[2025-03-24 13:01] LABS: Syphilis Screen Nonreactive (Nonreactive)
[2025-03-24 14:38] LABS: Alanine Aminotransferase 20 U/L (0-40); Albumin Level 4.3 g/dL (3.5-5.0); Alkaline Phosphatase 57 U/L (39-117); Anion Gap 13 (12-20); Aspartate Amino Transferase 24 U/L (5-37); Blood Urea Nitrogen 10 mg/dL (9-16); Calcium 9.0 mg/dL (8.4-10.2); Carbon Dioxide 27 mmol/L (22-29); Chloride 106 mmol/L (96-108); Cholesterol 149 mg/dL (<200); Estimated Glomerular Filt Rate > 60; HDL Cholesterol 42 mg/dL (>40); Potassium 3.4 mmol/L (3.3-5.1); Sodium 143 mmol/L (135-145); Total Protein 7.8 g/dL (6.5-8.0); Triglycerides 133 mg/dL (<150)
[2025-03-24 15:06] LABS: Reflex LDLD? No
[2025-03-25 14:14] LABS: HCV Log PCR <1.18 NOT DETECTED Log IU/mL (NOT DETECTED); HepC Viral Load <15 NOT DETECTED IU/mL (NOT DETECTED)
== END 2025-03-24 09:55 | disposition home or self-care (01) ==
LOC: HO.HHCL 09:54
PROVIDERS: PCP Internal Medicine; Visit Provider Internal Medicine
DX: Z11.4 Encounter for screening for human immunodeficiency virus [HIV] (principal); I10 Essential (primary) hypertension
CPT/HCPCS: 36415; 80053; 80061; 84443; 85025; 86780; 87389; 87522

== ENCOUNTER 2025-05-31 02:08 | Emergency (ER) | payer MEDICAID, SELFPAY ==
--- NOTE | 2025-05-31 | ECG_ITS ---
Test Reason : CP Blood Pressure : */* mmHG Vent. Rate : 66 BPM Atrial Rate : 66 BPM P-R Int : 122 ms QRS Dur : 96 ms QT Int : 400 ms P-R-T Axes : -13 45 4 degrees QTcB Int : 419 ms Normal sinus rhythm Nonspecific T wave abnormality Abnormal ECG When compared with ECG of 12-Mar-2025 11:11, No significant change was found Referred By: Generic ED Physician Electronically Signed By: JEAN NESBITT MD
--- NOTE | ~2025-05-31 | CT_ITS ---
CLINICAL HISTORY: Left flank pain CT abdomen and pelvis without contrast Comparison: None provided Findings: There is trace left pneumothorax and left flank subcutaneous emphysema. Unremarkable gallbladder and solid organs. No urolithiasis. No bowel obstruction, pneumoperitoneum, or pneumatosis. Pelvic contents unremarkable. Normal appendix. There is a posterior left 10th rib fracture. IMPRESSION: Posterior left 10th rib fracture with small left pneumothorax. This document has been electronically signed by: Graham Phan MD on 05/31/2025 04:24:13
--- NOTE | ~2025-05-31 | XR_ITS ---
CLINICAL HISTORY: cp 1 view chest x-ray Comparison: 03/12/2025 Findings: Portions of the exam are obscured by overlying material. No consolidation or effusion. Heart size is normal. No acute fracture. IMPRESSION: 1. No acute findings. This document has been electronically signed by: Graham Phan MD on 05/31/2025 04:08:51
[2025-05-31 02:19] VITALS: BP 140/90; PULSE 67; RESP 12; TEMP 36.7; O2SAT 96
[2025-05-31 02:30] VITALS: BP 147/88; PULSE 69; PULSE 71; RESP 20; O2SAT 95; BMI 33.5
[2025-05-31 02:31] LABS: Hemoglobin 13.7 g/dl (14.0-18.0); MANUAL DIFF FLAG NO; NRBC Abs Auto 0.000 X10*3/uL (0.0-0.012); NRBC Pct Auto 0.0 /100WBC (0.0-0.2)
[2025-05-31 02:38] LABS: Hematocrit 38.6 % (42.0-52.0); Imm Gran Abs Auto 0.07 X10*3/uL (0.00-0.03); Imm Gran Pct Auto 0.5 % (0.0-0.4); Lymphocytes Absolute Auto 2.3 X10*3/uL (1.2-4.9); Mean Corpuscular HGB Conc 35.5 g/dl (31.0-36.0); Mean Corpuscular Hemoglobin 31.6 pg (27.0-33.0); Mean Corpuscular Volume 89.1 fL (80.0-98.0); Platelet Count 200 X10*3/uL (160-400); Red Blood Count 4.33 X10*6/uL (4.60-5.80); White Blood Count 15.3 X10*3/uL (4.8-10.8)
[2025-05-31 02:58] LABS: Troponin-I High Sensitivity 27.9 ng/L (<3.5-35.0)
[2025-05-31 03:17] LABS: Alanine Aminotransferase 20 U/L (0-40); Albumin Level 4.4 g/dL (3.5-5.0); Alkaline Phosphatase 57 U/L (39-117); Anion Gap 14 (12-20); Aspartate Amino Transferase 30 U/L (5-37); Blood Urea Nitrogen 20 mg/dL (9-16); Calcium 10.0 mg/dL (8.4-10.2); Carbon Dioxide 27 mmol/L (22-29); Chloride 105 mmol/L (96-108); Creatinine Clr Calc Pharmacy 70.7; Estimated Glomerular Filt Rate 51; Potassium 2.9 mmol/L (3.3-5.1); Sodium 143 mmol/L (135-145); Total Protein 7.6 g/dL (6.5-8.0)
--- NOTE | 2025-05-31 03:30 | ED.ABDPAIN ---
HPI - Abdominal Pain General Chief Complaint: Chest Pain Stated Complaint: Chestpain Time Seen by Provider: 05/31/25 02:58 Source: patient and EMS Mode of arrival: EMS Limitations: no limitations History of Present Illness ED Provider: DR. Faustin HPI narrative: 60-year-old male with no significant past medical history came in for evaluation of left side flank pain started 1 hour before coming to the hospital pain started suddenly while he was on his phone in bed getting ready to sleep, patient was playing football earlier collided with another player fell landing on his left side, pain is severe 10/10, no nausea, no vomiting, no dysuria, no frequency urination, no recent travel, no lower extremity swelling or tenderness, patient confirmed that the pain is in the left flank area, no history of kidney stones, never had intra-abdominal surgery. Related Data Home Medications ?Medication ?Instructions ?Recorded ?Confirmed aspirin 81 mg tablet,delayed 81 mg PO DAILY 03/12/25 03/12/25 release buprenorphine 8 mg-naloxone 2 mg 1 film buccal DAILY 03/12/25 03/12/25 sublingual film (Suboxone) diclofenac sodium 1 % topical gel 2 g topical TID 03/12/25 03/12/25 ergocalciferol (vitamin D2) 1,250 1,250 mcg PO QWEEK 03/12/25 03/12/25 mcg (50,000 unit) capsule (Vitamin D2) hydrocortisone 1 % topical cream 1 appl topical BID 03/12/25 03/12/25 ibuprofen 800 mg tablet 800 mg PO TIDWM 03/12/25 03/12/25 ketoconazole 2 % topical cream 1 appl topical BID 03/12/25 03/12/25 lidocaine 5 % topical patch 1 patch topical DAILY 03/12/25 03/12/25 lisinopril 20 1 tab PO DAILY 03/12/25 03/12/25 mg-hydrochlorothiazide 25 mg tablet naloxone 4 mg/actuation nasal 1 spray intranasal Q2M PRN OVERDOSE 03/12/25 03/12/25 spray (Narcan) nicotine (polacrilex) 4 mg gum 4 mg buccal Q2H PRN CRAVINGS 03/12/25 03/12/25 (Nicorette) prazosin 2 mg capsule 4 mg PO BEDTIME 03/12/25 03/12/25 selenium sulfide 2.25 % shampoo 10 ml topical 3XW 03/12/25 03/12/25 sertraline 100 mg tablet 100 mg PO DAILY 03/12/25 03/12/25 trazodone 100 mg tablet 200 mg PO BEDTIME 03/12/25 03/12/25 Previous Rx's ?Medication ?Instructions ?Recorded albuterol sulfate 90 mcg/actuation 2 inh inhalation Q4-6H PRN 03/12/25 breath activated powder inhaler shortness of breath or wheezing #1 ea Allergies Allergy/AdvReac Type Severity Reaction Status Date / Time No Known Allergies (No Known Allergy Unverified 05/31/25 02:35 Allergies*) Review of Systems Review of Systems All other systems are reviewed and are negative Constitutional: Reports as per HPI and Reports no additional constitutional complaints Eyes: Reports as per HPI and Reports no additional eye complaints Reports system reviewed and no additional complaints, except as documented Cardiovascular: Reports as per HPI and Reports no additional cardiovascular complaints Respiratory: Reports as per HPI and Reports no additional respiratory complaints Gastrointestinal: Reports as per HPI and Reports no additional gastrointestinal complaints Genitourinary: Reports no additional female genitourinary complaints Musculoskeletal: Reports no additional musculoskeletal complaints Skin/Breast: Reports system reviewed and no additional complaints, except as docu Psychiatric: Reports no additional psychiatric complaints Endocrine: Reports no additional endocrine complaints Hematologic/Lymphatic: Reports no additional hematologic/lymphatic complaints Allergic/Immunologic: Reports no additional allergic/immunologic complaints Reports system reviewed and no additional complaints, except as documented and Reports Abnormal speech present [facility] Past Medical History Medical History No known health problems Social History Social History Alcohol intake: unknown Smoked in Last 30 Days: Yes Use of substances other than those prescribed or required for medical reasons: No Substance Use Type: Heroin Advance Directives: No Physical Exam ED Vital Signs: Vital Signs - 24 hr 05/31/25 02:19 05/31/25 02:30 05/31/25 02:30 Temperature 98.1 F Pulse Rate 67 71 Pulse Rate [Bilateral Radial] 69 Respiratory Rate 12 20 Blood Pressure 140/90 H 147/88 H Pulse Oximetry 96 95 Oxygen Delivery Method Room Air Room Air 05/31/25 04:50 Temperature 98.6 F Pulse Rate 74 Pulse Rate [Bilateral Radial] Respiratory Rate 15 Blood Pressure 141/94 H Pulse Oximetry 94 Oxygen Delivery Method Room Air BMI result Body Mass Index 33.5 Vital signs have been reviewed and appear to be correct. Blood pressure elevated. Heart rate normal. Respiratory rate normal. Temperature normal. Oxygen saturation normal. Appearance: Alert. Oriented X3. No acute distress. Head: Normal external exam. Normocephalic. Atraumatic. No King signs noted. No raccoon eyes noted Eyes: PERRLA. EOMI. Conjunctiva and sclera normal. Eyelids normal. ENT: TM's Normal. Pharynx normal. Uvula midline. Moist mucous membranes. No trismus noted. No drooling noted. No muffled voice noted. Neck: Normal inspection. Neck supple. FROM. No adenopathy. Thyroid Normal. No meningeal signs. No neck mass noted. CVS: Normal heart rate and rhythm. Heart sound normal. No murmurs noted. Pulses normal throughout. Respiratory: No respiratory distress. Painless inspiration. Breath sounds normal. No wheezes/rales/rhonchi noted. Chest nontender. No accessory muscle usage noted or decreased air movement noted. Abdomen: Soft, severe left flank pain Bowel sounds normal in all 4 quadrants. No distention noted. No organomegaly noted. No visible injury noted. Back: Left CVA tenderness. Full range of motion noted. Skin: Skin warm and dry. Normal skin color. Normal skin turgor. No rashes/lesions/lacerations noted. Extremities: No lower extremity edema. Extremities exhibit normal range of motion. Extremities nontender. Neuro: Oriented X 3. Cranial nerve exam: II-XII are grossly intact No motor deficit. No sensory deficit. Reflexes normal. Course Reevaluation(s) Reevaluation #1: s/p trauma after playing football and falling came in for evaluation of left flank pain. CT abdomen and pelvis reveals left 10th rib fracture with subcutaneous emphysema in the left flank area, with small left pneumothorax, patient is satting 94% on room air with RR 15. Case discussed with Dr. Storey trauma surgeon on-call at [facility] who accepted the patient to be transferred to [facility] for further evaluation after trauma. Time: 05:30 Medical Decision Making Differential Diagnosis Differential Diagnoses: The differential diagnosis associated with the presentation includes ( ACS, l ureteric stone, rib fracture, pneumothorax, pleural effusion, lung contusion.) Admission/Observation Consideration of admission/observation: Escalation of care including admission/observation considered Lab Data MDM Lab Attestation statement: I reviewed the patient's lab results. 05/31/25 02:24 05/31/25 02:24 Labs: Lab Results 05/31/25 Range/Units 02:24 WBC 15.3 H (4.8-10.8) X10*3/uL RBC 4.33 L (4.60-5.80) X10*6/uL Hgb 13.7 L (14.0-18.0) g/dl Hct 38.6 L (42.0-52.0) % MCV 89.1 (80.0-98.0) fL MCH 31.6 (27.0-33.0) pg MCHC 35.5 (31.0-36.0) g/dl RDW 12.3 (11.0-16.0) % Plt Count 200 (160-400) X10*3/uL MPV 11.1 (9.4-12.4) fL Immature Gran % (Auto) 0.5 H (0.0-0.4) % Neut % (Auto) 76.7 H (45-73) % Lymph % (Auto) 15.3 L (20-40) % [place] % (Auto) 6.1 (2-11) % Eos % (Auto) 1.1 (0-4) % Baso % (Auto) 0.3 (0-2) % Lymph # (Auto) 2.3 (1.2-4.9) X10*3/uL [place] # (Auto) 0.9 (0.1-1.2) X10*3/uL Eos # (Auto) 0.2 (0.0-0.4) X10*3/uL Baso # (Auto) 0.1 (0.0-0.2) X10*3/uL Abs Immat Gran (auto) 0.07 H (0.00-0.03) X10*3/uL Absolute Neuts (auto) 11.7 H (2.0-8.3) x10*3/uL Absolute Nucleated RBC 0.000 (0.0-0.012) X10*3/uL Nucleated RBC % (auto) 0.0 (0.0-0.2) /100WBC Sodium 143 (135-145) mmol/L Potassium 2.9 L* (3.3-5.1) mmol/L Chloride 105 (96-108) mmol/L Carbon Dioxide 27 (22-29) mmol/L Anion Gap 14 (12-20) BUN 20 H (9-16) mg/dL Creatinine 1.41 H (0.5-1.4) mg/dL Estim Creat Clear Calc 70.7 Estimated GFR 51 Random Glucose 115 (60-115) mg/dL Calcium 10.0 D (8.4-10.2) mg/dL Total Bilirubin 0.6 (0.0-1.0) mg/dL AST 30 (5-37) U/L ALT 20 (0-40) U/L Alkaline Phosphatase 57 (39-117) U/L Troponin I High Sens 27.9 D (<3.5-35.0) ng/L Total Protein 7.6 (6.5-8.0) g/dL Albumin 4.4 (3.5-5.0) g/dL Independent Interpretation I performed an independent interpretation of an: Plain X-Ray ( Chest: No acute intrathoracic pathology.) and CT Scan ( abdomen pelvis: Left subcutaneous flank emphysema, trace of left pneumothorax, small left lung contusion.) Radiology Impression Discussion of test interpretation with radiology: I have reviewed the radiologist's reading. Medications Administered Discontinued Medications Generic Name Dose Route Start Last Admin Trade Name Freq PRN Reason Stop Dose Admin Hydromorphone HCl 1 mg 05/31/25 03:02 05/31/25 03:15 Hydromorphone Hcl 1 Mg/Ml Syringe IVPUSH 05/31/25 03:03 1 mg ONCE ONE Administration Protocol Potassium Chloride 10 meq in 100 mls @ 100 mls/hr 05/31/25 03:27 05/31/25 04:52 Potassium Chloride/H20 IV 05/31/25 04:26 Infused ONCE ONE Infusion Ketorolac Tromethamine 15 mg 05/31/25 03:02 05/31/25 03:15 Ketorolac Tromethamine 15 Mg/Ml Vial IVPUSH 05/31/25 03:03 15 mg ONCE ONE Administration Potassium Chloride 40 meq 05/31/25 03:27 05/31/25 03:49 Potassium Chloride Packet 20 Meq Packet PO 05/31/25 03:28 40 meq ONCE ONE Administration Critical Care Time Critical Care Time Critical Care Time: Yes Total Critical Care Time: 40 Attestation: The patient was critically ill with a high probability of imminent or life-threatening deterioration. I spent greater than 30 minutes of discontinuous time evaluating the patient, delivering critical care at the bedside, discussing evaluating data with consultants. Critical care time does not include time spent performing separately billable procedures or teaching. Time spent performing critical care was 60 minutes. Discharge Plan Discharge Clinical Impression: Fracture of left tenth rib, Pneumothorax Patient Disposition: [facility] Transfer Details: [facility] Prescriptions: No Action ibuprofen 800 mg Tablet 800 mg PO TIDWM sertraline 100 mg Tablet 100 mg PO DAILY aspirin [Aspir-81] 81 mg Tablet,Delayed Release (Dr/Ec) 81 mg PO DAILY trazodone 100 mg Tablet 200 mg PO BEDTIME nicotine (polacrilex) [Nicorette] 4 mg Gum 4 mg BUCCAL Q2H PRN (Reason: CRAVINGS) hydrocortisone 1 % Cream 1 appl TOPICAL BID lidocaine 5 % Adhesive Patch,Medicated 1 patch TOPICAL DAILY Rx Instructions: leave on most painful area for up to 12 hrs lisinopril-hydrochlorothiazide 20-25 mg Tablet 1 tab PO DAILY ergocalciferol (vitamin D2) [Vitamin D2] 1,250 mcg (50,000 unit) Capsule 1,250 mcg PO QWEEK ketoconazole 2 % Cream 1 appl TOPICAL BID prazosin 2 mg Capsule 4 mg PO BEDTIME selenium sulfide 2.25 % Shampoo 10 ml TOPICAL 3XW Rx Instructions: lather into wet hair; leave in place for approximately 3 mins ; rinse diclofenac sodium 1 % Gel 2 g TOPICAL TID Rx Instructions: apply to single elbow, wrist or hand; for hand includes palm/fingers/back of hand buprenorphine-naloxone [Suboxone] 8-2 mg Film 1 film BUCCAL DAILY naloxone [Narcan] 4 mg/actuation [place],Non-Aerosol 1 spray INTRANASAL Q2M PRN (Reason: OVERDOSE) Rx Instructions: spray 1 dose into ONE nostril; alternate nostrils w each dose until help arrives albuterol sulfate 90 mcg/actuation aerosol powdr breath activated 2 inh inhalation Q4-6H PRN (Reason: shortness of breath or wheezing) Qty: 1 0RF Print Language: Bots[place]an
[2025-05-31] MEDS: Potassium Chloride Packet 20 MEQ PACKET 40 MEQ PO (03:49)
[2025-05-31] MEDS: Potassium Chloride/H20 10 MEQ/100 ML PIGGYBACK 100 MEQ IV (03:54)
--- NOTE | 2025-05-31 04:34 | PC.NURSE ---
Per radiology pt has Left posterior 10th rib fracture with a small pneumothorax, Dr. Faustin is aware
[2025-05-31 04:50] VITALS: BP 141/94; PULSE 74; RESP 15; TEMP 37; O2SAT 94
--- OUTSIDE RECORDS SUMMARY | 2025-05-31 04:51 | XMS_ITS | Encounter Summary ---
Author Organization [employer] Address [address] [facility] [address] [place] [address] Care Team Providers Care Internet Specialist Name Role Phone Meaghan Jones MD Primary Care Provider + Encounter Details Date Type Department Care Team (Late st Contact Info) Description 08/03/2022 Abstract [facility] [address] [place] [phone] ProviderDean MD Social History Tobacco Use Types Packs/Day Years [...] Care Team (Late st Contact Info) Description 07/03/2025 10:30 AM EDT Office Visit [facility] [address] [place] [phone] Polly Vasquez, OD [address] [place] [phone] 07/08/2025 11:15 AM EDT Office Visit [facility] [address] [place] [phone] Meaghan Jones MD [address] [place] [phone] documented as of this encounter Visit Diagnoses Not on filedocumented in this encounter Care Teams Internet Specialist Relationship Specialty Start Date End Date Meaghan Jones MD [address] [place] [phone] PCP - General Family Medicine 05/03/17 documented as of this encounter
--- OUTSIDE RECORDS SUMMARY | 2025-05-31 04:51 | XMS_ITS | Encounter Summary ---
Author Organization [employer] Address [address] [facility] 7[address] [place] [address] Care Team Providers Care Motorboat Mechanic Inboard Name Role Phone Meaghan Jones MD Primary Care Provider + Encounter Details Date Type Department Care Team (Late st Contact Info) Description 08/04/2022 Abstract [facility] [address] [place] [phone] ProviderDean MD Social History Tobacco Use Types [...] Description 07/03/2025 10:30 AM EDT Office Visit [facility] [address] [place] [phone] Polly Vasquez, OD [address] [place] [phone] 07/08/2025 11:15 AM EDT Office Visit [facility] [address] [place] [phone] Meaghan Jones MD [address] [place] [phone] documented as of this encounter Visit Diagnoses Not on filedocumented in this encounter Care Teams Motorboat Mechanic Inboard Relationship Specialty Start Date End Date Meaghan Jones MD [address] [place] [phone] PCP - General Family Medicine 05/03/17 documented as of this encounter
--- OUTSIDE RECORDS SUMMARY | 2025-05-31 04:51 | XMS_ITS | Clinical Summary ---
Author Organization [facility] Address [address] [place] [address] Care Team Providers Care Mortgage Consultant Name Role Phone Unavailable Primary Care Provider [...] 01/31/2016 Zoster Vaccines (1 of 2) 01/31/2016 Depression Screening 09/17/2024 COVID-19 Vaccine (1 - 2023-2 5 season) 2025 Influenza Vaccine (#1) 2025 RSV Immunization Adult [...]
--- OUTSIDE RECORDS SUMMARY | 2025-05-31 04:51 | XMS_ITS | Clinical Summary ---
Author Organization [employer] Address [address] [facility] [address] [place] [address] Care Team Providers Care Inventory Control Analyst Name Role Phone Meaghan Khan MD Primary Care Provider + Allergies No known active allergies Medications * This document contains information received from the source organization and may not represent a complete record from that organization. hydrocortisone 1 % cream Apply topically every 12 (twelve) hours. Apply by topical route 2 times every day a thin layer to the affected area(s) 2 Active ketoconazole (NIZOral) 2 % cream Apply topically every 12 (twelve) hours. Apply by topical route 2 times a day to the affected area(s) 2 Active lisinopril-hydr oCHLOROthiazide 20-25 MG tablet Take 1 tablet by mouth. Every day 2 Active nicotine polacrilex (Nicorette) 4 MG gum Take 1 each by mouth every 2 (two) hours. Chew 1 piece of gum by oral route every 2 hours as needed and as directed 1 Active Selenium Sulfide 2.25 % shampoo Apply topically 3 (three) times a week. 9 Active sertraline (Zoloft) 100 MG tablet Take 1 tablet by mouth in the morning. Take 1 tablet oral route every day Active naloxone (Narcan) 4 mg/0.1 mL nasal spray [place] 0.1 milliliter by intranasal route in 1 nostril may repeat dose every 2-3 minutes as needed alternating nostrils with each dose. 0 Active Blood Pressure Monitoring (Blood Pressure Cuff) misc Use PRN 0 Active doxepin (SINEquan) 50 MG capsule Take 50 mg by mouth at bedtime. Active cloNIDine (Catapres) 0.1 MG tablet Take 0.1 mg by mouth 2 times daily. Active Diclofenac Sodium 1 % gel Apply 2 g topically Once per day. 3 times every day to the affected area(s) 60 g Active lidocaine (Lidoderm) 5 % patch Apply 1 patch topically Once per day. Apply 1 patch by transdermal route every day ( May wear up to 12 hrs) 30 patch 5 Active ibuprofen 400 MG tablet 1-2 tablets 3 times every day with food PRN pain 120 tablet Active nicotine (Nicoderm CQ) 7 MG/24HR patch Place 1 patch on the skin 1 (one) time each day at the same time. 30 patch Active Hospital, Clinic, or Other Facility Administered Medication Ordered Dose Route Frequency Start Date End Date Status nitroglycerin (Nitrostat) SL tablet 0.4 mgIndications:Hypertens rob urgency 0.4 mg SL Every 5 min PRN 03/12/2025 Active Active Problems Problem Noted Date Diagnosed Date Opioid use disorder 04/08/2025 Homelessness 03/19/2025 Major depressive disorder, r ecurrent episode, severe, with psychosis 03/17/2025 History of hepatitis C 08/09/2022 Rash 08/04/2022 Essential hypertension 08/04/2022 Assessment & Plan (03/17/2025 3:59 PM EDT): Controlled. Compliant w/meds every 2 [employer] is our pharmacy nurse to facilitate compliance. Continue lisinopril/hctz Counseled re low salt diet/increase moderate physical activity. Check home BP BIW and prn CP/MADDEN/NICOLE Due to exertional chest pain/stable angina, I will refer to cardiology for further evaluation, rule out CAD Counseled to quit smoking and order labs, follow-up with me in 6 to 8 weeks Assessment & Plan (03/12/2025 2:08 PM EDT): Uncontrolled, not taking medication for few days. Will continue with medications the way he is taking them now from [facility]way: Lisinopril, HCTZ, amlodipine, and clonidine and follow-up with me next week Labs are ordered and will follow-up after ED evaluation. Refer to eye clinic Shoulder pain 08/04/2022 Vitamin D deficiency 08/04/2022 RADHA (generalized anxiety disorder) 08/04/2022 Assessment & Plan (03/17/2025 12:22 PM EDT): >>ASSESSMENT AND PLAN FOR GENERALIZED ANXIETY DISORDER WRITTEN ON 03/12/2025 2:08 PM BY MEAGHAN KHAN MD Needs to restart sertraline and doxepin to sleep. [facility] counselor walked into the room today and gave him information to reach out and to schedule an appointment with them. I told him to reach out to his [facility] CM (Melani, apparently she was working with him prior to being released from half-way) who is helping him MH referral. Discussed about reaching out to recovery coaches at our [facility] programs, I told him about programs at [facility] , will follow-up with him at next appointment Needs assistance with housing Resolved Problems Problem Noted Date Diagnosed Date Resolved Date Hypertensive urgency 03/12/2025 025 Assessment & Plan (03/12/2025 2:23 PM EDT): Patient has uncontrolled hypertension likely due to not taking medication for few days, he has angina symptoms with questionable inversion of the T waves on lateral leads, rule out ACS. I ordered sublingual nitro, ASA 324 mg stat and patient was put on O2 1 L NC for support and called 911 immediately. She was alert and able to answer questions while waiting to the ambulance, his chest pain decreased from 10 to 7-8 /10 after 1 sublingual nitro then EMS came immediately. He did develop headache after he took sublingual nitro. Patient sent to ED via EMS, we will follow-up I tentatively scheduled a follow-up ED appointment next week to go over medications and follow-up BP Encounters * This document contains information received from the source organization and may not represent a complete record from that organization. Date Type Department Care Team Description 04/16/2025 Telephone [facility] [address] [place] [phone] Meaghan Khan MD Form 04/16/2025 Telephone [facility] [address] [place], [place] [phone] Meaghan Khan MD No Show 04/15/2025 Telephone [facility] [address] [place] [phone] Pratima Mckeon MA Chart Prep 04/08/2025 10:00 AM EDT Office Visit [address] [phone] Trent Colon MD Substance use disorder (Primary Dx) 04/08/2025 Travel 03/24/2025 Population Health Risk Score [facility] ([facility]) Department [address] [place] [phone] Provider, Population Health Generic 03/17/2025 11:30 AM EDT Office Visit [facility] [address] [place] [phone] Meaghan Khan MD Essential hypertension (Primary Dx); Generalized anxiety disorder; Cigarette nicotine dependence without complication; Precordial pain 03/17/2025 Travel 03/16/2025 Telephone [facility] [address] [place] [phone] Meaghan Khan MD Chart Prep 03/12/2025 10:45 AM EDT Office Visit [address] [phone] Meaghan Khan MD Essential hypertension (Primary Dx); Hypertensive urgency; Generalized anxiety disorder 03/12/2025 Telephone [facility] [address] [place] [phone] Meaghan Khan MD Chest pain 03/12/2025 Telephone [facility] [address] [place] [phone] Meaghan Khan MD Record Request 03/12/2025 Travel 03/11/2025 Telephone [facility] [address] [place] [phone] Meaghan Khan MD chart prep from Last 3 Months Immunizations Immunization Administration Dates Next Due Hep A, Adult 08/15/2006,06/15/2004,11/26/2003 Hep A, Unspecified 12/12/2005 Hep B, Unspecified 12/12/2005,08/05/2004 Hep B, adult 08/15/2006,01/12/2006,06/21/2004 Influenza injectable quadriv alent IIV4 with preservative 07/10/2023 Influenza injectable quadriv alent preservative free 08/09/2020,06/14/2017 Influenza, IIV3, injectable 08/09/2020 Jaime SARS-CoV-2 Vaccination 04/21/2021 Tdap 06/28/2016 Social History Tobacco Use Types Packs/Day Years Used Date Smoking Tobacco: Every Day Cigarettes Passive Smoke Exposure: Current Smokeless Tobacco: Never Tobacco Cessation:Ready to Q uit: Not Asked; Counseling Given: Not Answered Alcohol Use Standard Drinks/Week Comments Never 0 [...] Orientation Straight 07/17/2022 10 :15 AM EDT Last Filed Vital Signs Vital Sign Reading Time Taken Comments Blood Pressure 139/80 03/17/2025 11:35 AM EDT Pulse 102 03/17/2025 11:35 AM EDT Temperature 36.6 C (97.8 F) 03/17/2025 11:35 AM EDT Respiratory Rate 16 03/17/2025 11:35 AM EDT Oxygen Saturation 95% 03/17/2025 11:35 AM EDT Inhaled Oxygen Concentration - - Weight 115 kg (254 lb 3.2 oz) 03/17/2025 11:35 A M EDT Height 177.8 cm (5' 10 ) 03/17/2025 11:35 AM EDT Body Mass Index 36.47 03/17/2025 11:35 AM EDT Plan of Treatment Upcoming Encounters Date Type Department Care Team (Late st Contact Info) Description 07/03/2025 10:30 AM EDT Office Visit [facility] [address] [place] [address] Polly Vasquez, OD [address] [place] [address] 07/08/2025 11:15 AM EDT Office Visit [facility] [address] [place] [address] Meaghan Khan MD [address] [place] [phone] Health Maintenance Due Date Last Done Comments CT Colonography 1966 Colonoscopy 1966 Colorectal Cancer Screening 1966 FIT DNA/Cologuard 1966 FIT 1966 FOBT 1966 Sigmoidoscopy 1966 Pneumococcal Vaccine: 50+ Years (1 of 2 - PCV) 1985 Zoster Vaccines (1 of 2) 01/31/2016 COVID-19 Vaccine (4 - season) 2025 07/10/2023, 10/11/2021, 04/21/2021 Influenza Vaccine (#1) 2025 3, 08/09/2020, 08/09/2020, Additional history exists Depression Monitoring 09/11/2025 03/12/2025, 025 Alcohol/Substance Use Screening 03/12/2026 03/12/2025 Disability Screening 03/12/2026 03/12/2025 SDOH Screening 03/12/2026 03/12/2025 Tobacco Screening 03/17/2026 03/17/2025 DTaP/Tdap/Td Vaccines (2 - Td or Tdap) 06/28/2026 06/28/2016 Lipid Panel 03/24/2030 03/24/2025, 11/19/2020 RSV Patients and Patients Aged 60 years or older (1 - 1-dose 75+ series) 2041 Hepatitis A Vaccines Completed 08/15/2006, 12/12/2005, 06/15/2004, Additional history exists Hepatitis B Vaccines Completed 08/15/2006, 01/12/2006, 12/12/2005, Additional history exists HIV Screening Completed 03/24/2025 HIB Vaccines Aged Out No longer eligi [...] patient's age to complete this topic Meningococcal Vaccine Aged Out No syd emerson eligible based on patient's age to complete this topic RSV under 20 months Aged Out No longe r eligible based on patient's age to complete this topic Rotavirus Vaccines Aged Out No longer eligible based on patient's age to complete this topic Procedures Procedure Name Priority Date/Time Associated Diagnosis Comments CBC WITH AUTO DIFFERENTIAL Routine 03/24/2025 9:57 AM EDT Essential hypertension SYPHILIS SCREEN Routine 03/24/2025 9:57 AM EDT Essential hypertension TSH W/REFLEX TO FT4 Routine 03/24/2025 9 :57 AM EDT Essential hypertension LIPID PANEL WITH REFLEX TO DIRECT LDL Routine 03/24/2025 9:57 AM EDT Essential hypertension HIV 1/2 ANTIGEN/ANTIBODY, FOURTH GENERATION W/RFL Routine 03/24/2025 9:57 AM EDT Essential hypertension HEPATITIS C VIRAL RNA, QUANTITATIVE, REAL-TIME PCR Routine 03/24/2025 9:57 AM EDT Essential hypertension COMPREHENSIVE METABOLIC PANEL Routine 03/24/2025 9:57 AM EDT Essential hypertension ECG 12-LEAD Routine 03/12/2025 2:00 PM EDT Hypertensive urgency from Last 3 Months Results * Syphilis Screen (03/24/2025 9:57 AM EDT) Syphilis Screen Nonreactive Nonreactive [facility] Blood 03/24/2025 9:57 AM EDT 03/24/2025 12:18 PM EDT us Meaghan Khan MD LAB BLOOD ORDERABLES Fin al Result Performing Organization Address City/[facility]/ZIP Co de Phone Number [facility] [address] [place] [phone] * TSH with Reflex to Free T4 (03/24/2025 9:57 AM EDT) TSH reflex Free T4 2.33 0.32 - 4.0 uIU/mL [facility] Blood 03/24/2025 9:57 AM EDT 03/24/2025 12:18 PM EDT us Meaghan Khan MD LAB BLOOD ORDERABLES Fin al Result Performing Organization Address City/[facility]/ZIP Co de Phone Number [facility] [address] [place] [phone] * Lipid Panel with Reflex to Direct LDL (03/24/2025 9:57 AM EDT) Triglycerides 133 <150 mg/dL [facility] Comment:Desirable Triglyceri de: less than 150 mg/dLBorderline High Triglyceride 150-199 mg/dLHigh Triglyceride: 200-499 mg/dLVery High Triglyceride: greater than or equal to 5OO mg/dL Cholesterol 149 <200 mg/dL [facility] Comment:Desirable Cholestero l: less than 200 mg/dLBorderline High Cholesterol: 200-239 mg/dLHigh Cholesterol: greater than 239 mg/dL LDL Cholesterol Calculated 81 <100 mg/dL [facility] Comment:Desirable LDL: less than 100 mg/dLNear Optimal/Above Optimal LDL: 110- 129 mg/dLBorderline High LDL: 130-159 mg/dLHigh LDL: 160-189 mg/dLVery High LDL: greater than or equal to 190 mg/dL HDL Cholesterol 42 >40 mg/dL [facility] Comment:Desirable HDL: great er than 40 mg/dL Note: This HDL assay may give artificially low results in patients with liver disease. Blood 03/24/2025 9:57 AM EDT 03/24/2025 12:18 PM EDT us Meaghan Khan MD LAB BLOOD ORDERABLES Fin al Result [facility] [address] [place] [phone] * Hepatitis C Viral RNA, Quantitative, Real-Time PCR (03/24/2025 9:57 AM EDT) Hepatitis C Viral Load <15 NOT DETECTED NOT DETECTED IU/mL [facility] HCV Log PCR <1.18 NOT DETECTED NOT DETECTED Log IU/mL [facility] Comment:For additional infor mation, please refer tohttp://education.Btiques/faq/TKM39p7(This link is being provided for informational/educational purposes only.)THIS TEST WAS PERFORMED AT:[facility] [place] [phone] LOPEZ MD Blood 03/24/2025 9:57 AM EDT 03/24/2025 12:18 PM EDT us Meaghan hKan MD LAB BLOOD ORDERABLES Fin al Result [facility] [address] [place] [phone] * (ABNORMAL) CBC auto differential (03/24/2025 9:57 AM EDT) White Blood Count 9.1 4.8 - 10.8 X10*3/uL [facility] Red Blood Count 4.60 4.60 - 5.80 X10*6/uL [facility] Hemoglobin 14.4 14.0 - 18.0 g/dl [facility] Hematocrit 41.5(L) 42.0 - 52.0 % [facility] Mean Corpuscular Volume 90.2 80.0 - 98.0 fL [facility] Mean Corpuscular Hemoglobin 31.3 27.0 - 33.0 pg [facility] Mean Corpuscular HGB Conc 34.7 31.0 - 36.0 g/dl [facility] Red Cell Distribution Width 12.6 11.0 - 16.0 % [facility] Platelet Count 237 160 - 400 X10*3/uL [facility] Mean Platelet Volume 11.3 9.4 - 12.4 fL [facility] Neutrophils Percent Auto 55.1 45 - 73 % [facility] Imm Gran Pct Auto 0.3 0.0 - 0.4 % [facility] Lymphocytes Percent Auto 35.2 20 - 40 % [facility] Monocytes Percent Auto 6.0 2 - 11 % [facility] Eosinophils Percent Auto 2.9 0 - 4 % [facility] Basophils Percent Auto 0.5 0 - 2 % [facility] NRBC Pct Auto 0.0 0.0 - 0.2 /100WBC [facility] Neutrophils Absolute Auto 5.0 2.0 - 8.3 x10*3/uL [facility] Imm Gran Abs Auto 0.03 0.00 - 0.03 X10*3/uL [facility] Lymphocytes Absolute Auto 3.2 1.2 - 4.9 X10*3/uL [facility] Monocytes Absolute Auto 0.6 0.1 - 1.2 X10*3/uL [facility] Eosinophils Absolute Auto 0.3 0.0 - 0.4 X10*3/uL [facility] Basophils Absolute Auto 0.1 0.0 - 0.2 X10*3/uL [facility] NRBC Abs Auto 0.000 0.0 - 0.012 X10*3/uL [facility] Blood Venous blood specimen / Unknown 03/24/2025 9:57 AM EDT 03/24/2025 12:18 PM EDT Meaghan Khan MD LAB BLOOD ORDERABLES Fin al Result [facility] [address] [place] [phone] * HIV-1/2 Antigen and Antibodies, Fourth Generation, with Reflexes (03/24/2025 9:57 AM EDT) HIV AB/AG Nonreactive Nonreactive [facility] Comment:HIV-1 p24 Ag and/or HIV-1/HIV-2 Ab not detected.A test result that is nonreactive does not exclude thepossibility of exposure to or infection with HIV-1 and/orHIV-2. Nonreactive results in this assay for individualswith prior exposure to HIV-1 and/or HIV-2 may be due toantigen and antibody levels that are below the limit ofdetection of this assay.The [employer] HIV Ag/Ab Combo assay result andsupplemental assay results should be interpreted inconjunction with the patient's clinical presentation,history and other laboratory results. If the results areinconsistent with clinical evidence, additional testing issuggested to confirm the result. Blood Venous blood specimen / Unknown 03/24/2025 9:57 AM EDT 03/24/2025 12:18 PM EDT us Meaghan Khan MD LAB BLOOD ORDERABLES Fin al Result Performing Organization Address City/[facility]/ZIP Co de Phone Number [facility] [address] [place], [place] [phone] * (ABNORMAL) Comprehensive Metabolic Panel (03/24/2025 9:57 AM EDT) Sodium 143 135 - 145 mmol/L [facility] Potassium 3.4 3.3 - 5.1 mmol/L [facility] Chloride 106 96 - 108 mmol/L [facility] Carbon Dioxide 27 22 - 29 mmol/L [facility] Anion Gap 13 12 - 20 [facility] Urea Nitrogen (BUN) 10 9 - 16 mg/dL [facility] Creatinine, Serum 1.03 0.5 - 1.4 mg/dL [facility] Estimated Glomerular Filt Rate >60 [facility] Comment:Chronic Kidney Disea se: Estimated GFR < 60 mL/min/[id number] Kidney Disease: Estimated GFR < 15 mL/min/1.73m2 Glucose 127(H) 60 - 115 mg/dL [facility] Calcium 9.0 8.4 - 10.2 mg/dL [facility] Bilirubin, Total 0.6 0.0 - 1.0 mg/dL [facility] Aspartate Amino Transferase 24 5 - 37 U/L [facility] Alanine Aminotransferase 20 0 - 40 U/L [facility] Total Protein 7.8 6.5 - 8.0 g/dL [facility] Albumin Level 4.3 3.5 - 5.0 g/dL [facility] Alkaline Phosphatase 57 39 - 117 U/L [facility] Blood Venous blood specimen / Unknown 03/24/2025 9:57 AM EDT 03/24/2025 12:18 PM EDT us Meaghan Khan MD LAB BLOOD ORDERABLES Fin al Result Performing Organization Address City/[facility]/ZIP Co de Phone Number [facility] [address] [place] [address] [phone] * ECG 12 lead (03/12/2025 2:00 PM EDT) Narrative Meaghan Khan MD - 03/12/2025 2:00 PM EDT NSR at 78 BPM, normal axis, PVCs and isolated triplets. Inverted T waves on lateral leads. Meaghan Khan MD ECG ORDERABLES Final Re sult from Last 3 Months Insurance [facility] C3 Care Teams Inventory Control Analyst Relationship Specialty Start Date End Date Meaghan Khan MD [address] [place] [phone] PCP - General Family Medicine 05/03/17
[2025-05-31 06:09] VITALS: BP 149/95; PULSE 70; RESP 16; O2SAT 97
[2025-05-31 06:17] VITALS: BP 149/95; PULSE 70; RESP 16; TEMP 36.8; O2SAT 97
== END 2025-05-31 06:15 | disposition short-term general hospital (02) ==
PROVIDERS: Emergency Provider Emergency Medicine
DX: S22.42XA Multiple fractures of ribs, left side, initial encounter for closed fracture (principal); R07.89 Other chest pain; R10.2 Pelvic and perineal pain; J93.9 Pneumothorax, unspecified; X50.1XXA Overexertion from prolonged static or awkward postures, initial encounter; Y93.61 Activity, american tackle football; Y92.321 Football field as the place of occurrence of the external cause; Y99.8 Other external cause status; Z79.899 Other long term (current) drug therapy
CPT/HCPCS: 36415; 71045; 74176; 80053; 84484; 85025; 93005; 96365; 96375; 96376; 99285; 99291; J1171; J1885; J3480

== ENCOUNTER → 2025-05-31 02:15 | Outpatient (BNV) | payer MEDICAID, SELFPAY | PROVIDERS: Emergency Provider Emergency Medicine; Visit Provider Internal Medicine Cardiovascular Disease | DX: R94.31 Abnormal electrocardiogram [ECG] [EKG] (principal); R07.9 Chest pain, unspecified | CPT/HCPCS: 93010 ==

== ENCOUNTER → 2025-05-31 02:59 | Outpatient (BNV) | payer MEDICAID, SELFPAY | PROVIDERS: Emergency Provider Emergency Medicine; Visit Provider Specialist | DX: R10.9 Unspecified abdominal pain (principal); S22.42XA Multiple fractures of ribs, left side, initial encounter for closed fracture; S27.0XXA Traumatic pneumothorax, initial encounter; R07.9 Chest pain, unspecified | CPT/HCPCS: 71045; 74176 ==